=== PATIENT | female | born 2000 | race Caucasian/White ===

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

== ENCOUNTER → 2023-04-25 | Outpatient (CLI) | payer BC ==
[2023-04-25 14:30] LABS: HEMATOCRIT 38.9 % (36.0-47.0); HEMOGLOBIN 13.4 g/dl (12.0-15.5); MEAN CORPUSCULAR HEMOGLOBIN 28.6 pg (27.0-33.0); MEAN CORPUSCULAR HGB CONC 34.4 g/dl (32.0-36.5); MEAN CORPUSCULAR VOLUME 83.1 fl (80.0-96.0); PLATELET COUNT, AUTOMATED 228 10^3/uL (150-450); RED BLOOD COUNT 4.68 10^6/uL (4.00-5.40); WHITE BLOOD COUNT 9.8 10^3/uL (4.0-10.0)
[2023-04-25 14:46] LABS: HIV 1&2 SCREEN NEGATIVE (NEGATIVE)
[2023-04-25 14:54] LABS: HEPATITIS C VIRUS ABY INDEX 0.12 INDEX (<0.8)
== END ==
LOC: M PLALAB 10:41
PROVIDERS: ATTEND Advanced Practice Midwife
DX: Z34.01 Encounter for supervision of normal first pregnancy, first trimester (principal)

== ENCOUNTER → 2023-06-04 | Outpatient (REF) | payer BC | LOC: M PLALAB 11:45 | PROVIDERS: ATTEND Advanced Practice Midwife | DX: Z34.01 Encounter for supervision of normal first pregnancy, first trimester (principal) ==

== ENCOUNTER → 2023-06-26 | Outpatient (CLI) | payer BC | LOC: M WHC 10:11 | PROVIDERS: ATTEND Advanced Practice Midwife | DX: Z34.02 Encounter for supervision of normal first pregnancy, second trimester (principal); Z3A.20 20 weeks gestation of pregnancy ==

== ENCOUNTER → 2023-07-11 | Outpatient (CLI) | payer BC | LOC: M WHC 07:06 | PROVIDERS: ATTEND Family Medicine | DX: Z36.2 Encounter for other antenatal screening follow-up (principal); Z3A.22 22 weeks gestation of pregnancy ==

== ENCOUNTER → 2023-08-15 | Outpatient (CLI) | payer BC | LOC: M WHC 07:56 | PROVIDERS: ATTEND Advanced Practice Midwife | DX: Z34.02 Encounter for supervision of normal first pregnancy, second trimester (principal); Z3A.27 27 weeks gestation of pregnancy ==

== ENCOUNTER → 2023-08-15 | Outpatient (CLI) | payer BC ==
[2023-08-15 13:01] LABS: HEMATOCRIT 34.9 % (36.0-47.0); HEMOGLOBIN 11.7 g/dl (12.0-15.5); MEAN CORPUSCULAR HEMOGLOBIN 28.3 pg (27.0-33.0); MEAN CORPUSCULAR HGB CONC 33.5 g/dl (32.0-36.5); MEAN CORPUSCULAR VOLUME 84.3 fl (80.0-96.0); PLATELET COUNT, AUTOMATED 200 10^3/uL (150-450); RED BLOOD COUNT 4.14 10^6/uL (4.00-5.40); WHITE BLOOD COUNT 11.2 10^3/uL (4.0-10.0)
[2023-08-15 14:37] LABS: GC DNA AMPLIFICATION NEGATIVE (NEGATIVE)
== END ==
LOC: M PLALAB 08:39
PROVIDERS: ATTEND Advanced Practice Midwife
DX: Z34.02 Encounter for supervision of normal first pregnancy, second trimester (principal)

== ENCOUNTER → 2023-09-23 | Outpatient (CLI) | payer BC | LOC: M WHC 14:47 | PROVIDERS: ATTEND Obstetrics & Gynecology | DX: Z36.2 Encounter for other antenatal screening follow-up (principal) ==

== ENCOUNTER → 2023-10-18 | Outpatient (CLI) | payer BC | LOC: M WHC 15:07 | PROVIDERS: ATTEND Obstetrics & Gynecology | DX: Z36.2 Encounter for other antenatal screening follow-up (principal); Z3A.36 36 weeks gestation of pregnancy ==

== ENCOUNTER → 2023-10-22 | Outpatient (REF) | payer BC | LOC: M PLALAB 10:27 | PROVIDERS: ATTEND Obstetrics & Gynecology | DX: Z36.85 Encounter for antenatal screening for Streptococcus B (principal) ==

== ENCOUNTER 2023-11-12 07:24 | Inpatient (IN) | payer BC ==
[2023-11-12] VITALS (17 sets, daily range): BP systolic 115–171; BP diastolic 60–88; O2SAT 98
[~2023-11-12] VITALS: Ht 172.7 cm; Wt 109.8 kg
[~2023-11-12 07:24] MED LIST: UNRESOLVED CLARIFICATION ENTRY XX SCH
[2023-11-12] MEDS ORDERED: OXYTOCIN DRIP 30 UNITS in IV 1 EA IV PRN (09:05)
[2023-11-12] MEDS ORDERED: PRENTAB9 PO (09:43)
[2023-11-12] MEDS ORDERED: HOME MED LIST COMPLETE! XX SCH (09:45)
[2023-11-12 10:37] LABS: HEMATOCRIT 37.2 % (36.0-47.0); HEMOGLOBIN 12.5 g/dl (12.0-15.5); MEAN CORPUSCULAR HEMOGLOBIN 27.3 pg (27.0-33.0); MEAN CORPUSCULAR HGB CONC 33.6 g/dl (32.0-36.5); MEAN CORPUSCULAR VOLUME 81.2 fl (80.0-96.0); PLATELET COUNT, AUTOMATED 199 10^3/uL (150-450); RED BLOOD COUNT 4.58 10^6/uL (4.00-5.40); WHITE BLOOD COUNT 15.7 10^3/uL (4.0-10.0)
[2023-11-12 11:49] LABS: HEPATITIS C VIRUS ABY INDEX < 0.02 INDEX (<0.8)
[2023-11-12] MEDS: LR 1,000 ML IV SCH (12:48)
[2023-11-12] MEDS: OXYTOCIN DRIP 30 UNITS in IV 1 EA IV SCH (12:49)
[2023-11-12] MEDS: BUTORPHANOL 2 MG/ML 1ML VIAL IV ONE (16:47)
[2023-11-12] MEDS: PROMETHAZINE 25MG/ML 1ML VIAL IV ONE (16:47)
[2023-11-12] MEDS: LIDOCAINE 1% MDV 20ML VIAL INFIL PRN (17:30)
[2023-11-12] MEDS ORDERED: RHO(D) IMMUNE GLOBULIN/MALTOSE 500MCG(2500IU)/2.2ML VIAL (WINRHO) IM SCH (17:50)
[2023-11-12] MEDS ORDERED: DOCUSATE SODIUM 100MG CAPSULE PO PRN (17:50)
[2023-11-12] MEDS ORDERED: METHYLERGONOVINE MALEATE 0.2 MG TAB PO PRN (17:50)
[2023-11-12] MEDS: ACETAMINOPHEN 500 MG TAB PO PRN (19:43)
[2023-11-12] MEDS: DIBUCAINE 1% OINTMENT 30GM TOP PRN (20:18)
[2023-11-13] MEDS: IBUPROFEN 800 MG TAB PO PRN (00:48)
[2023-11-13 06:00] VITALS: BP 124/70; O2SAT 100
[2023-11-13] MEDS: PRENATAL VITAMINS CHEWABLE TABLET PO SCH (08:22)
[2023-11-13 18:00] VITALS: BP 134/80
[2023-11-13] MEDS: IBUPROFEN 600MG TAB PO PRN (22:02)
[2023-11-14 06:00] VITALS: BP 132/82; O2SAT 99
[2023-11-14] MEDS: ACETAMINOPHEN TAB 650MG DOSE (2X325MG) PO PRN (06:05)
[2023-11-14] MEDS: MEASLES,MUMPS,RUBELLA VACCINE INJ (MMR-II) SC.IMMUN ONE (07:04)
== END 2023-11-14 16:45 | disposition home or self-care (01) | DRG 560 ==
LOC: M LDO 07:24 → M LDI 08:55 → M OBS 20:29
PROVIDERS: ADMIT Specialist; ATTEND Specialist
PROC: 10E0XZZ Delivery of Products of Conception, External Approach (ICD-10-PCS; principal; 2023-11-12)
PROC: 0KQM0ZZ Repair Perineum Muscle, Open Approach (ICD-10-PCS; 2023-11-12)
DX: O42.12 Full-term premature rupture of membranes, onset of labor more than 24 hours following rupture (principal); Z88.1 Allergy status to other antibiotic agents; Z3A.39 39 weeks gestation of pregnancy; Z88.2 Allergy status to sulfonamides; Z37.0 Single live birth; O70.1 Second degree perineal laceration during delivery

== ENCOUNTER → 2025-04-23 | Outpatient (CLI) | payer BC ==
[~2025-04-23] MED LIST changes: +PRENTAB9 PO; -UNRESOLVED CLARIFICATION ENTRY XX SCH
== END ==
LOC: M WHC 13:40
PROVIDERS: ATTEND Physician Assistant
DX: R10.22 Pelvic and perineal pain left side (principal)

== ENCOUNTER → 2025-04-27 | Outpatient (REF) | payer BC ==
[2025-04-29 13:52] LABS: HPV APTIMA Not Detected (Not Detected)
== END ==
LOC: M SFHCWAGY 18:05
PROVIDERS: ATTEND Physician Assistant
DX: Z12.4 Encounter for screening for malignant neoplasm of cervix (principal)
CPT/HCPCS: 87624; G0123